=== PATIENT | male | born 1960 | race Caucasian/White ===

== ENCOUNTER 2020-01-27 20:27 | Emergency (ER) | payer MEDICAID ==
[~2020-01-27] VITALS: Ht 180.3 cm; Wt 90.0 kg
[2020-01-27 20:30] VITALS: BP 184/95
--- NOTE | 2020-01-27 20:37 | NUR ---
PT BIB [facility] FROM [facility]. PT WAS DENIED AT [facility] AFTER SIGNING OUT AMA EARLIER TODAY. AFTER BEING DENIED ACCESS THERE, HE DECIDED HE WAS SUICIDAL HOWEVER DENIED SI/HI UPON ARRIVAL TO THE ER. PT EVALUATED BY GAVINO CHO. DENIES ETOH/DRUGS.
--- NOTE | 2020-01-27 21:01 | NUR ---
PT PROVIDED WITH CAB VOUCHER TO THE [facility]. PT PROVIDED WITH DISCHARGE PAPERWORK AND PRESCRIPTION EXPLAINED. PT DENIES ANY QUESTIONS AND VERBALIZES UNDERSTANDING. AMBULATORY TO THE DISCHARGE DESK
--- NOTE | 2020-01-27 21:03 | NUR ---
Patient/Caregiver given discharge instructions and they have confirmed that they understand the instructions. Patient ambulatory with steady gait.
== END 2020-01-27 21:06 | disposition home or self-care (01) ==
LOC: ED 20:30
DX: F31.9 Bipolar disorder, unspecified (principal); Z76.0 Encounter for issue of repeat prescription; F15.10 Other stimulant abuse, uncomplicated; F17.210 Nicotine dependence, cigarettes, uncomplicated; R45.850 Homicidal ideations; I10 Essential (primary) hypertension; F41.9 Anxiety disorder, unspecified
CPT/HCPCS: 99283; 99406